=== PATIENT | male | born 1945 | race Caucasian/White ===

== ENCOUNTER 2016-10-22 07:43 | Emergency (ER) | payer MEDICARE, BC ==
[2016-10-22 08:11] LABS: Urine Bilirubin 1 mg/dl (NEGATIVE); Urine Blood 250 /ul (NEGATIVE); Urine Ketone Negative (NEGATIVE); Urine Protein 100 mg/dL (NEGATIVE); Urine Urobilinogen 4 EU/dl (NORMAL)
--- NOTE | 2016-10-22 08:28 | ERNOTE ---
ER Male HPI Date of Service: 10/22/16 Stated Complaint: PAINFUL URINATION ER Male: urinary retention Time Seen by Provider: 10/22/16 08:17 Source: patient Exam Limitations: no limitations Immunizations: IMMUNIZATION HX Immunizations Up to Date Yes History of Influenza Vaccine Yes Hx Pneumococcal Vaccination Yes Allergies/Adverse Reactions: Allergies No Known Allergies Allergy (Verified 08/09/15 14:20) Home Medications: HOME MEDICATIONS Acetaminophen [Tylenol] 25 - 500 mg PO BID 12/16/14 [Last Taken Unknown] Albuterol Sulfate 2.5 mg IH DAILY PRN 12/16/14 [Last Taken Unknown] Allopurinol [Zyloprim] 300 mg PO DAILY 12/16/14 [Last Taken Unknown] Aspirin [Aspirin Enteric Coated] 81 mg PO DAILY 12/16/14 [Last Taken Unknown] Calcium Polycarbophil [Fibercon] 625 mg PO DAILY 12/16/14 [Last Taken Unknown] Flunisolide 25 ml NS 12/16/14 [Last Taken Unknown] Ibuprofen [Motrin] 800 mg PO TID PRN 12/16/14 [Last Taken Unknown] Ipratropium/Albuterol Sulfate [Combivent Respimat Inhal [place]] 20 - 100 mcg IH QID 12/16/14 [Last Taken Unknown] Metoprolol Tartrate [Lopressor] 50 mg PO DAILY 12/16/14 [Last Taken Unknown] Multivitamin [Poly-Vitamin] 1 each PO DAILY 12/16/14 [Last Taken Unknown] [place]-3 Fatty Acids [Fish Oil] 300 mg PO DAILY 12/16/14 [Last Taken Unknown] Omeprazole [Prilosec] 20 mg PO DAILY 12/16/14 [Last Taken Unknown] Simvastatin [Zocor] 20 mg PO DAILY 12/16/14 [Last Taken Unknown] Terazosin HCl 10 mg PO DAILY 12/16/14 [Last Taken Unknown] amLODIPine BESYLATE [Norvasc] 5 mg PO DAILY 12/16/14 [Last Taken Unknown] Levofloxacin [Levaquin] 750 mg PO DAILY #10 tab 08/09/15 [Last Taken Unknown] Ciprofloxacin HCl [Cipro] 500 mg PO BID #14 tablet 10/22/16 [Last Taken Unknown] Phenazopyridine HCl [Pyridium] 200 mg PO TID #6 tablet 10/22/16 [Last Taken Unknown] - History of Present Illness Narrative: 70-year-old white male presents with difficulty urinating. Patient states yesterday he had to vehicle to urinating off and on. This morning he woke up and he again only has dribbling. He states he does have a history of prostate problems and is on a medication for this. Presumably this is Flomax. He has not had any systemic signs of illness. No fever chills. No prior prostate surgery. No nausea vomiting. He has not had hematuria. Timing: Present: intermittent Quality: Present: moderate Review of Systems - Review of Systems Constitutional: Present: See HPI. Absent: recent illness, fever, chills, diaphoresis EYE: Present: no symptoms reported ENT: Present: no symptoms reported Respiratory: Present: no symptoms reported Cardiology: Present: no symptoms reported Gastrointestinal/Abdominal: Present: no symptoms reported Genitourinary: Present: See HPI, dysuria, decreased urinary output. Absent: hematuria, discharge Musculoskeletal: Present: no symptoms reported Neurological: Present: no symptoms reported Endocrine: Present: no symptoms reported Psych: Present: no symptoms reported - Patient's Past Medical History Patient History - Medical: Diabetes Type 2 Patient History - Cardiac/Respiratory: Hypertension, Hyperlipidemia Patient History - Cancer: No Hx of Cancer Patient History - Surgical Procedures: Appendectomy Patient History - Other: None - Social History Living Situations: home Abuse History: No History of abuse Psych History: No pertinent hx Smoking Status: Former smoker Have you smoked in the past 12 months: Yes Alcohol Use: none Drug Use: none - Immunizations Immunizations Up to Date: Yes Hx Pneumococcal Vaccination: Yes History of Influenza Vaccine: Yes Physical Exam - Physical Exam General Appearance: Present: wd/wn, alert, no apparent distress Eye Exam: Normal inspection: bilateral Ears, Nose, Throat: Present: normal ENT inspection Neck: Present: normal inspection Respiratory: Present: no respiratory distress, normal breath sounds, no accessory muscle use, lungs clear Cardiovascular/Chest: Present: regular rate, rhythm, normal peripheral pulses Gastrointestinal/Abdominal: Present: normal bowel sounds, nontender, soft. 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 - Vital Signs Patient's Vital Signs:: I have reviewed the patient's vital signs. Vital Signs: Vital Signs 10/22/16 07:52 Temperature 37.8 C H Pulse Rate 77 Respiratory 16 Rate Blood Pressure 141/60 O2 Sat by Pulse 90 Oximetry - Progress/Reassessment Chief Complaint: Genitourinary Problem Plan - Plan Plan: Post void residual was 0. Patient is hemodynamically stable. He is not having fever. He is not having vomiting. I will discharge him home on antibiotic therapy. I will encourage fluid hydration. Patient will be advised if anytime he starts to develop systemic signs of illness such as fevers chills vomiting patient returned to our department. He should follow-up with his primary care physician early next week. We will culture the urine. This was discussed with patient and his significant other. They verbalized complete understanding. Departure Clinical Impression: UTI (urinary tract infection) Qualifiers: Urinary tract infection type: acute cystitis Hematuria presence: with hematuria Qualified Code(s): N30.01 - Acute cystitis with hematuria - Departure Disposition: Home self-care Condition: Good Instructions: Urinary Tract Infection, Adult, [id number] Additional Instructions: Follow-up with primary care physician Tuesday. Return to the emergency department if any problems such as fever, chills, vomiting or weakness. Prescriptions: Ciprofloxacin HCl [Cipro] 500 mg PO BID #14 tablet Phenazopyridine HCl [Pyridium] 200 mg PO TID #6 tablet
[2016-10-22 08:32] LABS: Urine Appearance Cloudy; Urine Bacteria 3+; Urine Color Yellow; Urine Nitrite Positive (NEGATIVE); Urine WBC >50 /hpf (0-5)
[2016-10-22 09:03] LABS: Albumin * 3.8 gm/dl (3.4-5.0); Anion Gap 10.9 mmol/L (6.8-13.8); BUN/Creatinine Ratio 21.6 (9.0-21.6); Bilirubin, Total 2.4 mg/dL (0.0-1.1); Ca. Corrected For Albumin 8.7 mg/dL (8.4-10.2); Calcium * 8.9 mg/dL (7.9-10.9); Carbon Dioxide 31.8 mmol/L (24-32.6); Potassium 3.7 mmol/L (3.4-4.6); Total Protein 7.1 gm/dL (6.2-8.2)
[2016-10-22 09:27] VITALS: BP 157/72
== END 2016-10-22 09:27 | disposition home or self-care (01) ==
LOC: ER 07:43
DX: N30.01 Acute cystitis with hematuria (principal); Z87.891 Personal history of nicotine dependence

== ENCOUNTER 2016-11-01 12:52 | Emergency (ER) | payer MEDICARE, BC ==
--- NOTE | 2016-11-01 13:12 | ERNOTE ---
Dyspnea - General Presenting Symptoms: shortness of breath Time Seen by Provider: 11/01/16 12:55 Source: patient Exam Limitations: no limitations - Immun/Allergies/Home Medications Immunizations: IMMUNIZATION HX Immunizations Up to Date Yes History of Influenza Vaccine Yes Hx Pneumococcal Vaccination Yes Allergies/Adverse Reactions: Allergies No Known Allergies Allergy (Verified 11/01/16 13:19) Home Medications: HOME MEDICATIONS Acetaminophen [Tylenol] 25 - 500 mg PO BID 12/16/14 [Last Taken Unknown] Albuterol Sulfate 2.5 mg IH DAILY PRN 12/16/14 [Last Taken Unknown] Allopurinol [Zyloprim] 300 mg PO DAILY 12/16/14 [Last Taken Unknown] Aspirin [Aspirin Enteric Coated] 325 mg PO DAILY 12/16/14 [Last Taken Unknown] Calcium Polycarbophil [Fibercon] 625 mg PO DAILY 12/16/14 [Last Taken Unknown] Ipratropium/Albuterol Sulfate [Combivent Respimat Inhal [place]] 20 - 100 mcg IH QID 12/16/14 [Last Taken Unknown] Metoprolol Tartrate [Lopressor] 50 mg PO BID 12/16/14 [Last Taken Unknown] [place]-3 Fatty Acids [Fish Oil] 1,000 mg PO DAILY 12/16/14 [Last Taken Unknown] Omeprazole [Prilosec] 20 mg PO DAILY 12/16/14 [Last Taken Unknown] Simvastatin [Zocor] 20 mg PO DAILY 12/16/14 [Last Taken Unknown] Terazosin HCl 10 mg PO DAILY 12/16/14 [Last Taken Unknown] Atorvastatin Calcium [Lipitor] 80 mg PO DAILY 11/01/16 [Last Taken Unknown] Fluticasone Propionate [Flonase] 1 spray NS DAILY 11/01/16 [Last Taken Unknown] predniSONE [Prednisone] 3 tab PO DAILY #18 tab 11/01/16 [Last Taken Unknown] - History of Present Illness Narrative: Patient has had a slight cough and has been short of breath with activity for two days. He went to the walk in clinic were he was found to have O2 sats in the low 80's, denies chest pain. He stopped smoking six months ago, was seen in the ER recently for a UTI, finished his antibiotics, denies any other symptoms Review of Systems - Review of Systems Constitutional: Present: recent illness - UTI. Absent: fever, chills ENT: Absent: nose pain, nose congestion, nasal drainage, sore throat Respiratory: Present: See HPI, shortness of breath, cough Cardiology: Absent: chest pain Gastrointestinal/Abdominal: Absent: nausea, vomiting, diarrhea, abdominal pain Genitourinary: Present: no symptoms reported Musculoskeletal: Absent: back pain Neurological: Absent: headache - Patient's Past Medical History Patient History - Medical: Diabetes Type 2 Patient History - Cardiac/Respiratory: COPD, Hypertension, Hyperlipidemia Patient History - Cancer: No Hx of Cancer Patient History - Surgical Procedures: Appendectomy Patient History - Other: None - Social History Living Situations: home Abuse History: No History of abuse Psych History: No pertinent hx Smoking Status: Former smoker Alcohol Use: none Drug Use: none - Immunizations Immunizations Up to Date: Yes Hx Pneumococcal Vaccination: Yes History of Influenza Vaccine: Yes Physical Exam - Physical Exam General Appearance: Present: wd/wn, alert, no apparent distress Head Exam: Present: normal inspection Eye Exam: Normal inspection: bilateral, PERRL: bilateral Ears, Nose, Throat: Present: normal ENT inspection, normal pharynx Respiratory: Present: no respiratory distress, no accessory muscle use, lungs clear, decreased breath sounds. Absent: expiration (prolonged), wheezing Cardiovascular/Chest: Present: regular rate, rhythm, no murmur Gastrointestinal/Abdominal: Present: nontender, nondistended Extremity Exam: Present: no edema Neurological Exam: Present: alert, oriented, normal mood/affect Skin Exam: Present: normal color, warm/dry ED Progress - Results and Orders Patient's Lab Results:: I have reviewed the patient's lab results. - Vital Signs Patient's Vital Signs:: I have reviewed the patient's vital signs. - 84% on RA - X-Ray X-Ray #1 X-Ray: chest - chronic, no acute changes Interpretation: Reviewed by me - Progress/Reassessment Progress Note-Subjective: 11/01/16 14:30 discussed test results with patient, will order CTA 11/01/16 15:[address] results with patient, no PE, recommended admission as patient hypoxic on on RA, patient is adamant about going home discussed with Diane (housing case manager) getting home O2 11/01/16 15:52 attempted to get follow up appointment with PCP (Tonia Mendoza) on vacation this week. Departure Clinical Impression: COPD exacerbation, Hypoxemia - Departure Disposition: Against medical advice Condition: Fair Instructions: Chronic Obstructive Pulmonary Disease Exacerbation, [id number] Additional Instructions[facility] treatments as needed we will continue to work on getting you set up for oxygen Referrals: Tonia Mendoza FNP [Primary Care Provider] - Prescriptions: predniSONE [Prednisone] 3 tab PO DAILY #18 tab
[2016-11-01 13:28] LABS: Hematocrit 45.5 % (42.0-52.0); Mean Cell Volume 91.7 fl (78-100); Mean Corpuscular Hemoglobin 30.2 pg (27-31); Mean Platelet Volume 10.1 fl (6.0-9.5); Neutrophil # 9.5 K/mm3 (1.3-6.0); Neutrophil % 80.2 % (42-75.0); Platelet Count 163 K/mm3 (150-450); Red Blood Count 4.96 M/mm3 (4.7-6.0); Red Cell Distribution Width 12.9 % (11.5-14.0); White Blood Count 11.9 K/mm3 (4.0-10.5)
[2016-11-01 13:42] LABS: Troponin I Less than 0.017 ng/ml (0.00-0.10)
[2016-11-01 13:44] LABS: ALT 21 U/L (19-67); AST 15 U/L (0-48); Albumin * 3.3 gm/dl (3.4-5.0); Alkaline Phosphatase * 99 U/L (50-170); Anion Gap 6.7 mmol/L (6.8-13.8); BNP * 215 pg/mL (5-350); BUN/Creatinine Ratio 17.8 (9.0-21.6); Bilirubin, Total 0.9 mg/dL (0.0-1.1); Blood Urea Nitrogen 16 mg/dL (6-23); Ca. Corrected For Albumin 8.8 mg/dL (8.4-10.2); Calcium * 8.6 mg/dL (7.9-10.9); Carbon Dioxide 36.6 mmol/L (24-32.6); Chloride 103 mmol/L (97-106); Glucose * 161 mg/dL (70-110); Potassium 4.3 mmol/L (3.4-4.6); Sodium 142 mmol/L (132-142); Total Protein 6.9 gm/dL (6.2-8.2)
[2016-11-01 14:53] VITALS: BP 124/52
[2016-11-01] MEDS ORDERED: METHYLPREDNISOLONE SOD SUCC/PF 125 MG/2 ML VIAL IV ONE (15:32)
[2016-11-01] MEDS ORDERED: METHYLPREDNISOLONE SOD SUCC/PF 125 MG/2 ML VIAL ONE (15:36)
== END 2016-11-01 16:42 | disposition left against medical advice (07) ==
LOC: ER 12:52
DX: J44.1 Chronic obstructive pulmonary disease with (acute) exacerbation (principal); R09.02 Hypoxemia; E11.9 Type 2 diabetes mellitus without complications; I10 Essential (primary) hypertension; E78.5 Hyperlipidemia, unspecified; Z87.891 Personal history of nicotine dependence; Z53.29 Procedure and treatment not carried out because of patient's decision for other reasons

== ENCOUNTER 2018-02-21 12:08 | Observation (INO) | payer BC, MEDICARE, OTHER ==
[2018-02-21] MEDS ORDERED: ALBUTEROL SULFATE/IPRATROPIUM 3 ML NEBU IH ONE (12:22)
[2018-02-21] MEDS ORDERED: METHYLPREDNISOLONE SOD SUCC/PF 40 MG/ML VIAL IV ONE (12:23)
--- NOTE | 2018-02-21 12:28 | ERNOTE ---
Time Seen by Provider: 02/21/18 12:13 Stated Complaint: NOT FEELING WELL Presenting Symptoms:: cough, other - SOB Source: patient Exam Limitations: no limitations Immunizations: IMMUNIZATION HX Immunizations Up to Date Yes History of Influenza Vaccine Yes Hx Pneumococcal Vaccination No Allergies/Adverse Reactions: Allergies No Known Allergies Allergy (Verified 02/21/18 12:13) Home Medications: HOME MEDICATIONS Allopurinol [Zyloprim] 300 mg PO DAILY 12/16/14 [Last Taken Unknown] Metoprolol Tartrate [Lopressor] 50 mg PO BID 12/16/14 [Last Taken Unknown] Omeprazole [Prilosec] 20 mg PO DAILY 12/16/14 [Last Taken Unknown] Terazosin HCl 10 mg PO DAILY 12/16/14 [Last Taken Unknown] Atorvastatin Calcium [Lipitor] 80 mg PO DAILY 11/01/16 [Last Taken Unknown] albuterol sulfate 2.5 mg/3 mL (0.083 %) solution for nebulization 2.5 mg IH Q6H PRN ml 11/29/17 [Last Taken Unknown] amlodipine 5 mg tablet 5 mg PO DAILY 11/29/17 [Last Taken Unknown] aspirin 325 mg tablet,delayed release 81 mg PO DAILY 11/29/17 [Last Taken Unknown] calcium polycarbophil 625 mg tablet 625 mg PO BID tab 11/29/17 [Last Taken Unknown] diphenhydramine 25 mg-acetaminophen 500 mg tablet 1 tab PO HS PRN 11/29/17 [Last Taken Unknown] fluticasone 50 mcg/actuation nasal spray,suspension 2 spray [place] DAILY g 11/29/17 [Last Taken Unknown] melatonin 3 mg tablet 6 mg PO HS tab 11/29/17 [Last Taken Unknown] omega-3 fatty acids 500 mg capsule 1,000 mg PO DAILY cap 11/29/17 [Last Taken Unknown] sildenafil 100 mg tablet 100 mg PO DAILY PRN 11/29/17 [Last Taken Unknown] - History of Present Ilness Narrative: The patient has been suffering from cold like symptoms for possibly upwards to 2 weeks, however over the past several days he has been coughing up copious amounts of secretions and his O2 sat started to drop today. Home health care saw him today and his sats were in the mid 80s on his normal 2-1/2 L O2 nasal cannula Timing: getting worse Severity: moderate Frequency/Possible Cause: Reports: occasional episodes Modifying Factors - Improves: Reports: oxygen Modifying Factors - Worsens: Reports: nothing Associated Symptoms: Reports: cough, shortness of breath Review of Systems - Review of Systems Constitutional: Present: See HPI EYE: Present: no symptoms reported ENT: Present: no symptoms reported Respiratory: Present: See HPI Cardiology: Present: no symptoms reported Gastrointestinal/Abdominal: Present: no symptoms reported Genitourinary: Present: no symptoms reported Musculoskeletal: Present: no symptoms reported Skin: Present: no symptoms reported Neurological: Present: no symptoms reported Endocrine: Present: no symptoms reported Hematologic/Lymphatic: Present: no symptoms reported Psych: Present: no symptoms reported Medical History (Last Reviewed 12/06/17 @ 13:44 by ARIE Jones) Type 2 diabetes mellitus (Chronic) Onset Date: Unknown COPD (chronic obstructive pulmonary disease) (Chronic) Onset Date: Unknown Allergic rhinitis (Chronic) Onset Date: Unknown Cataracts, bilateral Onset Date: Unknown GERD (gastroesophageal reflux disease) Onset Date: Unknown Gout Onset Date: Unknown Hyperlipidemia Onset Date: Unknown Hypertension Onset Date: Unknown Morbid obesity Onset Date: Unknown Tobacco abuse Onset Date: Unknown Surgical History: Surgical History (Last Reviewed 12/06/17 @ 13:44 by ARIE Jones) H/O removal of cyst Onset Date: Unknown History of appendectomy Onset Date: Unknown History of incision and drainage Onset Date: Unknown History of surgical removal of pilonidal cyst Onset Date: Unknown Family History: Family History (Last Reviewed 12/06/17 @ 13:44 by ARIE Jones) Father , age 93 Cancer AAA (abdominal aortic aneurysm) Mother , age 89 CVA (cerebral vascular accident) Social History: Preferred Language Mexican Smoking Status Former smoker Abuse History No History of abuse Psych History No pertinent hx Alcohol Use none Drug Use none (Last Updated 12/06/17 @ 16:07 by ARIE Jones) No Social History Section defined Physical Exam - Physical Exam General Appearance: Present: wd/wn, alert, moderate distress Head Exam: Present: normal inspection, no evidence of injury Eye Exam: Normal inspection: bilateral, PERRL: bilateral Ears, Nose, Throat: Present: normal ENT inspection, H, normal pharynx Neck: Present: normal inspection, nontender Respiratory: Present: no respiratory distress, no accessory muscle use, chest nontender, decreased breath sounds, other - find coarse breath sounds Cardiovascular/Chest: Present: regular rate, rhythm, no murmur, normal peripheral pulses Gastrointestinal/Abdominal: Present: normal bowel sounds, nontender, nondistended, soft, no organomegaly Rectal Exam: Present: deferred Back Exam: Present: normal inspection, normal range of motion Extremity Exam: Present: normal inspection, non-tender, no edema, normal range of motion Neurological Exam: Present: alert, oriented, normal mood/affect Skin Exam: Present: normal color, warm/dry Lymphatic Exam: Present: no adenopathy ED Progress - Results and Orders Patient's Lab Results:: I have reviewed the patient's lab results. - Vital Signs Patient's Vital Signs:: I have reviewed the patient's vital signs. Vital Signs: Vital Signs 02/21/18 12:09 Temperature 36.5 C Pulse Rate 61 Respiratory Rate 13 Blood Pressure 142/71 O2 Sat by Pulse Oximetry 89 L - EKG EKG: NSR - X-Ray X-Ray #1 X-Ray: chest Interpretation: Reviewed by me - Progress/Reassessment Chief Complaint: Cough Plan - Plan Plan: Patient only improved minimally after the breathing treatment and steroids. He is currently to be admitted for little more aggressive pulmonary toilet and IV steroids and we await the sputum culture to see whether he might not want to start him on IV antibiotics as well. I discussed the case with Dr. Toledo and h e agrees to admit the patient. Departure Clinical Impression: Hypoxemia COPD (chronic obstructive pulmonary disease) Qualifiers: COPD type: COPD with acute exacerbation Qualified Code(s): J44.1 - Chronic obstructive pulmonary disease with (acute) exacerbation - Departure Disposition: Still a patient Condition: Fair Referrals: Tonia Mendoza FNP [Primary Care Provider] -
[2018-02-21] MEDS ORDERED: METHYLPREDNISOLONE SOD SUCC/PF 125 MG/2 ML VIAL IV ONE (12:46)
[2018-02-21 12:51] LABS: Hematocrit 40.3 % (42.0-52.0); Mean Cell Volume 95.3 fl (78-100); Mean Corpuscular Hemoglobin 30.7 pg (27-31); Mean Corpuscular Hgb Conc 32.3 g/dl (32-36); Mean Platelet Volume 10.1 fl (8-11.3); Neutrophil # 9.3 K/mm3 (1.3-6.0); Platelet Count 159 K/mm3 (150-450); Red Blood Count 4.23 M/mm3 (4.7-6.0); Red Cell Distribution Width 12.3 % (11.5-14.0); White Blood Count 11.9 K/mm3 (4.0-10.5)
[2018-02-21 13:09] LABS: ALT 18 U/L (19-67); AST 17 U/L (0-48); Albumin * 3.3 gm/dl (3.4-5.0); Alkaline Phosphatase * 112 U/L (50-170); Anion Gap 5.8 mmol/L (6.8-13.8); BNP * 413 pg/mL (5-350); BUN/Creatinine Ratio 19.3 (9.0-21.6); Bilirubin, Total 0.9 mg/dL (0.0-1.1); Blood Urea Nitrogen 16 mg/dL (6-23); Ca. Corrected For Albumin 9.5 mg/dL (8.4-10.2); Calcium * 9.3 mg/dL (7.9-10.9); Carbon Dioxide 43.6 mmol/L (24-32.6); Chloride 99 mmol/L (97-106); Glucose * 142 mg/dL (70-110); Magnesium 1.6 mg/dL (1.2-2.8); Potassium 4.4 mmol/L (3.4-4.6); Sodium 144 mmol/L (132-142); Total Protein 7.1 gm/dL (6.2-8.2); Troponin I Less than 0.017 ng/mL (0.00-0.10)
[2018-02-21] MEDS ORDERED: ALBUTEROL SULFATE 2.5 MG/0.5 ML VIAL.NEB IH PRN (15:03)
--- NOTE | 2018-02-21 15:59 | HP ---
Chief Complaint - Chief Complaint Date of Service: 02/21/18 Time of Service: 15:36 Chief Complaint: Short of breath History of Present Illness: Miguel is a 72 yo male with history of chronic respiratory failure on 2.5lpm for COPD. He has been on oxygen for the last 8 months. He gets his medical care from the [facility] in [place]. He reports over the last 24 hours he has had worsening shortness of breath and productive cough. He was evaluated at home by his home health nurse and his oxygen saturation was 84% on his usual 2.5lpm of oxygen. He then presented to the [facility] ER for evaluation. Chest xray, blood gas, and labwork showed him to likely be in COPD exacerbation. He was requiring 3lpm to keep oxygen saturation >87%. There was no evidence of pneumonia. He was given IV solumedrol at 125mg and nebulizer treatment. He reports now he is feeling a little better but still short of breath more than usual. Medical History (Last Reviewed 02/21/18 @ 15:04 by Jalil Gomez RN) Type 2 diabetes mellitus (Chronic) Onset Date: Unknown COPD (chronic obstructive pulmonary disease) (Chronic) Onset Date: Unknown Allergic rhinitis (Chronic) Onset Date: Unknown Cataracts, bilateral Onset Date: Unknown GERD (gastroesophageal reflux disease) Onset Date: Unknown Gout Onset Date: Unknown Hyperlipidemia Onset Date: Unknown Hypertension Onset Date: Unknown Morbid obesity Onset Date: Unknown Tobacco abuse Onset Date: Unknown Surgical History: Surgical History (Last Reviewed 02/21/18 @ 15:04 by Jalil Gomez RN) H/O removal of cyst Onset Date: Unknown History of appendectomy Onset Date: Unknown History of incision and drainage Onset Date: Unknown History of surgical removal of pilonidal cyst Onset Date: Unknown Family History: Family History (Last Reviewed 02/21/18 @ 15:02 by Jalil Gomez RN) Father , age 93 Cancer AAA (abdominal aortic aneurysm) Mother , age 89 CVA (cerebral vascular accident) Social History: Preferred Language Guyanese Smoking Status Former smoker Abuse History No History of abuse Psych History No pertinent hx Alcohol Use none Drug Use none (Last Updated 12/06/17 @ 16:07 by ARIE Jones) No Social History Section defined Review Of Systems (GEN) - Review of Systems Generalized/Overall Review: Absent: Weakness, Chills, Fever EENTM: Present: No Symptoms Reported Respiratory: Present: Cough, Shortness of Breath, Wheezing. Absent: Orthopnea, Stridor Cardiac: Absent: Chest Pain, Edema, Palpitations Abdominal: Absent: Nausea, Vomiting Genitourinary: Present: No Symptoms Reported Musculoskeletal: Present: No Symptoms Reported Neurological: Present: No Symptoms Reported Skin: Present: No Symptoms Reported Immunizations: IMMUNIZATION HX Immunizations Up to Date Yes History of Influenza Vaccine Yes Hx Pneumococcal Vaccination No Allergies/Adverse Reactions: Allergies Allergy/AdvReac Type Severity Reaction Status Date / Time No Known Allergies Allergy Verified 02/21/18 12:13 Home Medications: HOME MEDICATIONS Allopurinol [Zyloprim] 300 mg PO DAILY 12/16/14 [Last Taken Unknown] Metoprolol Tartrate [Lopressor] 50 mg PO BID 12/16/14 [Last Taken Unknown] Omeprazole [Prilosec] 20 mg PO DAILY 12/16/14 [Last Taken Unknown] Terazosin HCl 10 mg PO DAILY 12/16/14 [Last Taken Unknown] Atorvastatin Calcium [Lipitor] 80 mg PO DAILY 11/01/16 [Last Taken Unknown] albuterol sulfate 2.5 mg/3 mL (0.083 %) solution for nebulization 2.5 mg IH Q6H PRN ml 11/29/17 [Last Taken Unknown] amlodipine 5 mg tablet 5 mg PO DAILY 11/29/17 [Last Taken Unknown] aspirin 325 mg tablet,delayed release 81 mg PO DAILY 11/29/17 [Last Taken Unknown] calcium polycarbophil 625 mg tablet 625 mg PO BID tab 11/29/17 [Last Taken Unknown] diphenhydramine 25 mg-acetaminophen 500 mg tablet 1 tab PO HS PRN 11/29/17 [Last Taken Unknown] fluticasone 50 mcg/actuation nasal spray,suspension 2 spray BRYANNA DAILY g 11/29 [Last Taken Unknown] melatonin 3 mg tablet 6 mg PO HS tab 11/29/17 [Last Taken Unknown] omega-3 fatty acids 500 mg capsule 1,000 mg PO DAILY cap 11/29/17 [Last Taken Unknown] sildenafil 100 mg tablet 100 mg PO DAILY PRN 11/29/17 [Last Taken Unknown] Exam - Exam Vital Signs: Vital Signs - Last Taken Temp 36.5 C 02/21/18 14:45 Pulse 66 02/21/18 14:45 Resp 22 H 02/21/18 14:45 BP 146/65 02/21/18 14:45 Pulse Ox 90 L 02/21/18 14:45 Constitutional: Present: Alert, Oriented x3, Cooperative, Obese ENT Exam: Present: hearing grossly normal Eye Exam: bilateral eye: normal inspection Respiratory: Present: decreased breath sounds, wheezing Cardiovascular/Chest: Present: regular rate, rhythm, no murmur Abdomen: Present: Normal bowel sounds, soft, nontender, nondistended Skin Exam: Present: normal color, warm/dry, no cyanosis Appearance: Present: appropriate appearance, appropriate insight Eye contact: Present: cooperative, good eye contact, normal speech Thoughts: Present: normal thought pattern, no apparent hallucination Diagnostic Studies: Abnormal Lab Results 02/21/18 02/21/18 02/21/18 Range/Units 12:22 12:40 12:40 WBC 11.9 H (4.0-10.5) K/mm3 RBC 4.23 L (4.7-6.0) M/mm3 Hgb 13.0 L (13.5-18.0) gm/dL Hct 40.3 L (42.0-52.0) % Immature Gran % (Auto) 1.30 H (0.001-0.429) % Immature Gran # (Auto) 0.15 H (0.000-0.0310) K/mm3 Neutrophils % 78.0 H (42-75.0) % Lymphocytes % 8.7 L (20-51) % Monocytes % 10.2 H (0.0-9) % Neutrophils # 9.3 H (1.3-6.0) K/mm3 Lymphocytes # 1.03 L (1.5-3.5) k/mm3 Monocytes # 1.2 H (0.0-1.0) k/mm3 pCO2 56.9 H (35.0-48.0) mmHg pO2 56.2 L (83.0-108.0) mmHg HCO3 34.2 H (21.0-28.0) mmol/L Total CO2 36.0 H (19.0-24.0) mmol/L Base Excess 7.6 H (-2.0-3.0) mmol/L ABG O2 Sat (Measured) 88.5 L (94.0-98.0) % Sodium 144 H (132-142) mmol/L Plasma Sodium 145 H (130-142) mmol/L Carbon Dioxide 43.6 H (24-32.6) mmol/L Anion Gap 5.8 L (6.8-13.8) mmol/L Random Glucose 142 H (70-110) mg/dL ALT 18 L (19-67) U/L B-Natriuretic Peptide 413 H (5-350) pg/mL Albumin 3.3 L (3.4-5.0) gm/dl Microbiology 02/21/18 13:00 Sputum Culture - Preliminary Sputum Laboratory Results WBC 11.9 K/mm3 (4.0-10.5) H 02/21/18 12:40 RBC 4.23 M/mm3 (4.7-6.0) L 02/21/18 12:40 Hgb 13.0 gm/dL (13.5-18.0) L 02/21/18 12:40 Hct 40.3 % (42.0-52.0) L 02/21/18 12:40 MCV 95.3 fl (78-100) 02/21/18 12:40 MCH 30.7 pg (27-31) 02/21/18 12:40 MCHC 32.3 g/dl (32-36) 02/21/18 12:40 RDW 12.3 % (11.5-14.0) 02/21/18 12:40 Plt Count 159 K/mm3 (150-450) 02/21/18 12:40 MPV 10.1 fl (8-11.3) 02/21/18 12:40 Immature Gran % (Auto) 1.30 % (0.001-0.429) H 02/21/18 12:40 Immature Gran # (Auto) 0.15 K/mm3 (0.000-0.0310) H 02/21/18 12:40 Neutrophils % 78.0 % (42-75.0) H 02/21/18 12:40 Lymphocytes % 8.7 % (20-51) L 02/21/18 12:40 Monocytes % 10.2 % (0.0-9) H 02/21/18 12:40 Eosinophils % 1.3 % (0.0-3.0) 02/21/18 12:40 Basophils % 0.5 % (0.0-1.0) 02/21/18 12:40 Nucleated RBC % 0.0 k/mm3 (0-1) 02/21/18 12:40 Neutrophils # 9.3 K/mm3 (1.3-6.0) H 02/21/18 12:40 Lymphocytes # 1.03 k/mm3 (1.5-3.5) L 02/21/18 12:40 Monocytes # 1.2 k/mm3 (0.0-1.0) H 02/21/18 12:40 Eosinophils # 0.2 k/mm3 (0.0-0.7) 02/21/18 12:40 Absolute Basophils 0.1 k/mm3 (0.0-0.1) 02/21/18 12:40 pCO2 56.9 mmHg (35.0-48.0) H 02/21/18 12:22 pO2 56.2 mmHg (83.0-108.0) L 02/21/18 12:22 HCO3 34.2 mmol/L (21.0-28.0) H 02/21/18 12:22 Total CO2 36.0 mmol/L (19.0-24.0) H 02/21/18 12:22 Base Excess 7.6 mmol/L (-2.0-3.0) H 02/21/18 12:22 ABG pH 7.40 (7.35-7.45) 02/21/18 12:22 ABG O2 Sat (Measured) 88.5 % (94.0-98.0) L 02/21/18 12:22 Sodium 144 mmol/L (132-142) H 02/21/18 12:40 Plasma Sodium 145 mmol/L (130-142) H 02/21/18 12:40 Potassium 4.4 mmol/L (3.4-4.6) 02/21/18 12:40 Chloride 99 mmol/L (97-106) 02/21/18 12:40 Carbon Dioxide 43.6 mmol/L (24-32.6) H 02/21/18 12:40 Anion Gap 5.8 mmol/L (6.8-13.8) L 02/21/18 12:40 BUN 16 mg/dL (6-23) 02/21/18 12:40 Creatinine 0.83 mg/dL (0.4-1.4) 02/21/18 12:40 Est GFR (Non-Af Amer) 97 mL/min (60-130) 02/21/18 12:40 BUN/Creatinine Ratio 19.3 (9.0-21.6) 02/21/18 12:40 Random Glucose 142 mg/dL (70-110) H 02/21/18 12:40 Calcium 9.3 mg/dL (7.9-10.9) 02/21/18 12:40 Calcium Adj for Albumin 9.5 mg/dL (8.4-10.2) 02/21/18 12:40 Magnesium 1.6 mg/dL (1.2-2.8) 02/21/18 12:40 Total Bilirubin 0.9 mg/dL (0.0-1.1) 02/21/18 12:40 AST 17 U/L (0-48) 02/21/18 12:40 ALT 18 U/L (19-67) L 02/21/18 12:40 Alkaline Phosphatase 112 U/L (50-170) 02/21/18 12:40 Troponin I Less than 0.017 ng/mL (0.00-0.10) 02/21/18 12:40 B-Natriuretic Peptide 413 pg/mL (5-350) H 02/21/18 12:40 Total Protein 7.1 gm/dL (6.2-8.2) 02/21/18 12:40 Albumin 3.3 gm/dl (3.4-5.0) L 02/21/18 12:40 Assessment/Plan - Assessment/Plan (1) COPD exacerbation Assessment: Migule is a 72 yo male with: 1) COPD exacerbation - He has chronic respiratory failure, potentially acute on chronic respiratory failure as he is currently using 3lpm to keep sats >87% compared to his baseline of 2.5lpm. He was given IV solumedrol 125mg in the ER, will continued Prednisone 40mg starting daily tomorrow. Will treat with duoneb q6hr and q2hr prn, cornet and incentive spirometer, and azithromycin 500mg daily x 3 days. At this time will admit to observation. Expect 1 midnight stay. Problem: Acute
[2018-02-21] MEDS: AZITHROMYCIN 250 MG TABLET PO SCH (16:43)
[2018-02-21] MEDS ORDERED: Sildenafil Citrate [Viagra] 100 MG PO PRN (17:13)
[2018-02-21] MEDS ORDERED: ACETAMINOPHEN 500 MG TABLET PO PRN (17:22)
[2018-02-21] MEDS ORDERED: diphenhydrAMINE HCL 25 MG CAPSULE PO PRN (17:23)
[2018-02-21] MEDS: ALBUTEROL SULFATE/IPRATROPIUM 3 ML NEBU IH SCH (18:59)
[2018-02-21] MEDS ORDERED: ROSUVASTATIN CALCIUM 20 MG TABLET PO SCH (21:00)
[2018-02-21] MEDS ORDERED: MELATONIN 3,000 MCG TABLET PO SCH (21:00)
[2018-02-21] MEDS: CALCIUM POLYCARBOPHIL 625 MG TABLET PO SCH (21:38)
[2018-02-21] MEDS: METOPROLOL TARTRATE 50 MG TABLET PO SCH (21:39)
[2018-02-22] MEDS: ALBUTEROL SULFATE/IPRATROPIUM 3 ML NEBU IH SCH ×2 (00:02→06:04)
[2018-02-22] MEDS ORDERED: PANTOPRAZOLE SODIUM 20 MG TABLET.DR PO SCH (07:00)
[2018-02-22] MEDS: METOPROLOL TARTRATE 50 MG TABLET PO SCH (08:34)
[2018-02-22] MEDS: CALCIUM POLYCARBOPHIL 625 MG TABLET PO SCH (08:34)
[2018-02-22] MEDS: AZITHROMYCIN 250 MG TABLET PO SCH (08:34)
[2018-02-22] MEDS ORDERED: ALLOPURINOL 300 MG TABLET PO SCH (09:00)
[2018-02-22] MEDS ORDERED: FLUTICASONE PROPIONATE 120 SPRAY INHALER NS SCH (09:00)
[2018-02-22] MEDS ORDERED: predniSONE 20 MG TABLET PO SCH (09:00)
[2018-02-22] MEDS ORDERED: ASPIRIN 81 MG TABLET.DR PO SCH (09:00)
[2018-02-22] MEDS ORDERED: TERAZOSIN HCL 5 MG CAPSULE PO SCH (09:00)
[2018-02-22] MEDS ORDERED: OMEGA-3 FATTY ACIDS 1 CAP CAPSULE PO SCH (09:00)
[2018-02-22] MEDS ORDERED: amLODIPine BESYLATE 5 MG TABLET PO SCH (09:00)
--- NOTE | 2018-02-22 11:38 | DS ---
(1) COPD exacerbation Problem: Acute Description of Stay: Miguel is a 72 yo male with COPD exacerbation that was admitted due to worsening shortness of breath and cough. He has chronic respiratory failure at home and is on 2.5lpm of oxygen continuously. He was admitted and placed on IV steroids and switched to oral prednisone today. He was given Azithromycin 500mg daily, scheduled duonebs q6h, coronet, and incentive spirometer. Today he feels better and is ready to go home. He will continue to follow the [facility] for routine care. He will continue to follow Dr. 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 He would like to establish with a local primary care for any local needs. He will need a total of 3 days of azithromycin and I will give him a tapering dose of prednisone. Procedures Performed: none Results and Findings: Pending Mircobiology Results 02/21/18 13:00 Sputum Sputum Culture - Preliminary No Pathogens Isolated Lab Pending Results 02/21/18 12:22: pCO2 56.9 H, pO2 56.2 L, HCO3 34.2 H, Total CO2 36.0 H, Base Excess 7.6 H, ABG pH 7.40, ABG O2 Sat (Measured) 88.5 L 02/21/18 12:40: WBC 11.9 H, RBC 4.23 L, Hgb 13.0 L, Hct 40.3 L, MCV 95.3, MCH 30.7, MCHC 32.3, RDW 12.3, Plt Count 159, MPV 10.1, Immature Gran % (Auto) 1.30 H, Immature Gran # (Auto) 0.15 H, Neutrophils % 78.0 H, Lymphocytes % 8.7 L, Monocytes % 10.2 H, Eosinophils % 1.3, Basophils % 0.5, Nucleated RBC % 0.0, Neutrophils # 9.3 H, Lymphocytes # 1.03 L, Monocytes # 1.2 H, Eosinophils # 0.2, Absolute Basophils 0.1 02/21/18 12:40: Sodium 144 H, Plasma Sodium 145 H, Potassium 4.4, Chloride 99, Carbon Dioxide 43.6 H, Anion Gap 5.8 L, BUN 16, Creatinine 0.83, Est GFR (Non-Af Amer) 97, BUN/Creatinine Ratio 19.3, Random Glucose 142 H, Calcium 9.3, Calcium Adj for Albumin 9.5, Magnesium 1.6, Total Bilirubin 0.9, AST 17, ALT 18 L, Alkaline Phosphatase 112, Troponin I Less than 0.017, B-Natriuretic Peptide 413 H, Total Protein 7.1, Albumin 3.3 L Discharge Location: Home Disposition: Home Health Service Condition: Fair Discharge Activity: Activity as tolerated Discharge Diet: General/regular food Referrals: Tonia Mendoza FNP [Primary Care Provider] - One Week Geovanni Solorzano MD [Associate] - (Next available) Problem Oriented Discharge Instructions to Patient/Family: Chronic Obstructive Pulmonary Disease Exacerbation, [id number] Additional Patient Instructions (free text): -Please make TCM appointment unless senior care discharge. Thank you! Jadyn @ ext:[phone]. Resume services with [facility]. Please call report to Tari at [phone]. Fax orders upon discharge. Prescriptions (Any new or edited meds): Azithromycin [Zithromax] 500 mg PO DAILY #2 tablet predniSONE [Prednisone] 40 mg PO DAILY #25 tablet Complete Home Medications List: Complete Home Medication List: Allopurinol [Zyloprim] 300 mg PO DAILY 12/16/14 Metoprolol Tartrate [Lopressor] 50 mg PO BID 12/16/14 Omeprazole [Prilosec] 20 mg PO DAILY 12/16/14 Terazosin HCl 10 mg PO DAILY 12/16/14 Atorvastatin Calcium [Lipitor] 80 mg PO DAILY 11/01/16 albuterol sulfate 2.5 mg/3 mL (0.083 %) solution for nebulization 2.5 mg IH Q8H PRN ml 11/29/17 amlodipine 5 mg tablet 5 mg PO DAILY 11/29/17 aspirin 325 mg tablet,delayed release 81 mg PO DAILY 11/29/17 calcium polycarbophil 625 mg tablet 625 mg PO BID tab 11/29/17 diphenhydramine 25 mg-acetaminophen 500 mg tablet 1 tab PO HS PRN 11/29/17 fluticasone 50 mcg/actuation nasal spray,suspension 2 spray BRYANNA DAILY g 11/29/17 melatonin 3 mg tablet 6 mg PO HS tab 11/29/17 omega-3 fatty acids 500 mg capsule 1,000 mg PO DAILY cap 11/29/17 sildenafil 100 mg tablet 100 mg PO DAILY PRN 11/29/17 Ketoconazole [Nizoral Cream] 1 appl TP BID 11/20/18 Acetaminophen [Tylenol] 500 mg PO HS PRN tablet 02/22/18 Azithromycin [Zithromax] 500 mg PO DAILY #2 tablet 02/22/18 Calcium Polycarbophil [Fibercon] 625 mg PO BID tablet 02/22/18 diphenhydrAMINE HCL [Benadryl] 25 mg PO HS PRN capsule 02/22/18 predniSONE [Prednisone] 40 mg PO DAILY #25 tablet 02/22/18
[2018-02-22 13:58] VITALS: BP 156/65
== END 2018-02-22 14:00 | disposition home health service (06) ==
LOC: MS 12:08 → ER 12:08 → MS 14:04
PROVIDERS: ADMIT Family Medicine; ATTEND Family Medicine
DX: R06.00 Dyspnea, unspecified
CPT/HCPCS: 36415; 36600; 71020; 71046; 80053; 82803; 83519; 83735; 83880; 84484; 85025; 87070; 93005; 94640; 94664; 94760; 96374; 99284; G0378

== ENCOUNTER 2019-10-27 16:47 | Inpatient (IN) ==
--- NOTE | 2019-10-27 17:37 | ERNOTE ---
Medical Problem HPI - Narrative Date of Service: 10/27/19 - General Chief Complaint: General Assessment Time Seen by Provider: 10/27/19 17:31 Source: EMS, RN notes reviewed, other - RN spoke to visiting nurse Exam Limitations: dementia - Immun/Allergies/Home Medications Immunizations: IMMUNIZATION HX Immunizations Up to Date Yes History of Influenza Vaccine Yes Hx Pneumococcal Vaccination Yes Allergies/Adverse Reactions: Allergies No Known Allergies Allergy (Verified 08/30/19 15:46) Home Medications: HOME MEDICATIONS Allopurinol [Zyloprim] 300 mg PO DAILY 12/16/14 [Last Taken Unknown] Metoprolol Tartrate [Lopressor] 50 mg PO BID 12/16/14 [Last Taken Unknown] Omeprazole [Prilosec] 20 mg PO DAILY 12/16/14 [Last Taken Unknown] Terazosin HCl 10 mg PO DAILY 12/16/14 [Last Taken Unknown] Atorvastatin Calcium [Lipitor] 80 mg PO DAILY 11/01/16 [Last Taken Unknown] albuterol sulfate 2.5 mg IH Q8H PRN ml 11/29/17 [Last Taken Unknown] amlodipine 5 mg tablet 5 mg PO DAILY 11/29/17 [Last Taken Unknown] fluticasone propionate 50 mcg/actuation nasal spray,suspension 2 spray BRYANNA DAILY g 11/29/17 [Last Taken Unknown] sildenafil 100 mg tablet 100 mg PO DAILY PRN 11/29/17 [Last Taken Unknown] Calcium Polycarbophil [Fibercon] 625 mg PO BID tab 02/22/18 [Last Taken Unknown] budesonide 0.5 mg/2 mL suspension for nebulization 0.5 mg IH BID #60 ml 05/09/18 [Last Taken Unknown] ipratropium 0.5 mg-albuterol 3 mg (2.5 mg base)/3 mL nebulization soln 0.5 - 2.5 mg IH QID #90 ml 05/09/18 [Last Taken Unknown] walker See Dose Instructions .ROUTE .MEDSUPPLY #1 ea 05/09/18 [Last Taken Unknown] blood-glucose meter See Dose Instructions .ROUTE .MEDSUPPLY #1 ea 05/10/18 [Last Taken Unknown] aspirin 81 mg tablet,delayed release 81 mg PO DAILY 08/15/18 [Last Taken Unknown] budesonide-formoterol HFA 80 mcg-4.5 mcg/actuation aerosol inhaler 2 inh IH BID 08/15/18 [Last Taken Unknown] finasteride 5 mg tablet 5 mg PO DAILY 08/15/18 [Last Taken Unknown] omega-3 fatty acids 1,000 mg capsule 2,000 mg PO BID cap 08/15/18 [Last Taken Unknown] Blood Glucose Test See Dose Instructions .ROUTE .MEDSUPPLY #100 ea NS 02/05/19 [Last Taken Unknown] lancets 31 gauge See Dose Instructions .ROUTE .MEDSUPPLY #100 ea 03/29/19 [Last Taken Unknown] ketoconazole 2 % topical cream 1 applic TOPICAL BID #30 g 03/30/19 [Last Taken Unknown] Durable Medical Equipment See Rx Instructions .ROUTE .MEDSUPPLY #1 ea 06/07/19 [Last Taken Unknown] drew.stocking,knee,reg,xlrg See Rx Instructions .ROUTE .MEDSUPPLY #12 ea 06/07/19 [Last Taken Unknown] diphenhydramine 25 mg-acetaminophen 500 mg tablet 1 tab PO HS PRN 06/07/19 [Last Taken Unknown] polyethylene glycol 3350 17 gram oral powder packet 17 g PO DAILY PRN 06/07/19 [Last Taken Unknown] - History of Present History Narrative: Patient was brought in by ambulance. He lives at home alone with visiting nurse. He lives in filthy conditions, EMS found in laying in urine and feces. [facility], given that he has been living in conditions of self neglect. He calls EMS frequently for assistance either because he has fallen or needs assistance with ADL's. He is not able to give any coherent history. He is alert, but confused and at times agitated and calling out. Review of Systems - Narrative Narrative: Unable to obtain, mental status changes. Medical History (Last Reviewed 10/27/19 @ 18:22 by Suzanne Acosta MD) Tobacco abuse (Chronic) Onset Date: Unknown Morbid obesity (Chronic) Onset Date: Unknown Hypertension (Chronic) Onset Date: Unknown Hyperlipidemia (Chronic) Onset Date: Unknown Gout (Chronic) Onset Date: Unknown GERD (gastroesophageal reflux disease) (Chronic) Onset Date: Unknown Type 2 diabetes mellitus (Chronic) Onset Date: Unknown COPD (chronic obstructive pulmonary disease) (Chronic) Onset Date: Unknown Allergic rhinitis (Chronic) Onset Date: Unknown Cataracts, bilateral Onset Date: Unknown Surgical History: Surgical History (Last Reviewed 10/27/19 @ 18:22 by Suzanne Acsota MD) H/O removal of cyst Onset Date: Unknown History of appendectomy Onset Date: Unknown History of incision and drainage Onset Date: Unknown History of surgical removal of pilonidal cyst Onset Date: Unknown Family History: Family History (Last Reviewed 10/27/19 @ 18:22 by Suzanne Acosta MD) Father , age 93 Cancer AAA (abdominal aortic aneurysm) Mother , age 89 CVA (cerebral vascular accident) Social History: (Last Reviewed 10/27/19 @ 18:22 by Suzanne Acosta MD) Social History: adopted: No foster care: No group home: No Marital status: Single lives independently: Yes household members: none caregiver/support person: No current occupational status: retired Highest education level completed: high school graduate Service: Yes [employer] branch: [employer] Tobacco: Smoking Status: Former smoker Smoking End Date: 04/04/14 Alcohol: alcohol intake: former Substance Use: substance use type: does not use Dietary Habits: caffeine: Yes Physical Exam - Physical Exam General Appearance: Present: moderate distress, anxious Head Exam: Present: normal inspection, no evidence of injury Eye Exam: Normal inspection: bilateral, PERRL: bilateral, EOMI: bilateral Ears, Nose, Throat: Present: normal ENT inspection Neck: Present: normal inspection, nontender Respiratory: Present: no respiratory distress, normal breath sounds, no accessory muscle use, chest nontender, lungs clear Cardiovascular/Chest: Present: regular rate, rhythm, systolic murmur Gastrointestinal/Abdominal: Present: nontender, soft - obese, no organomegaly Back Exam: Present: no CVA tenderness, no vertebral tenderness Extremity Exam: Present: extremity edema - chronic dermatitis changes bilateral lower legs with weeping. Neurological Exam: Present: other - Moves all extremities equally. No facial droop. Tongue midline. Skin Exam: Present: warm/dry Progress - Results and Orders Patient's Lab Results:: I have reviewed the patient's lab results. - Vital Signs Patient's Vital Signs:: I have reviewed the patient's vital signs. Vital Signs: Vital Signs 10/27/19 16:54 10/27/19 17:11 Temperature 36.5 C Pulse Rate 103 H 132 H Respiratory Rate 20 Blood Pressure 118/67 118/74 O2 Sat by Pulse Oximetry 90 L 98 - EKG EKG #2 EKG: atrial fibrillation EKG read: Interp. by me EKG Comments: No significant change from 08/30/2019. - Progress/Reassessment Chief Complaint: General Assessment Progress Note-Subjective: 10/27/19 19:[address] scan. No urine specimen yet. [facility] to [facility], as he is going to need placement. [facility] the [facility]. The [facility] operator said he was working on a transfer from another hospital and to call back in about 15 minutes. 10/27/19 19:41 I spoke to the AOD at the [facility] in [place]. He is NOT travel eligible. She is going to fax some papers about [place] financial implications. He is confused, which the visiting nurse earlier today said is his baseline. He is unable to take care of himself at home, he falls frequently, is not capable of handling his meds, and is not capable of taking care of his leg cellulitis. Will request admission locally, he is going to need social work intervention and placement. Departure Clinical Impression: Confusion, Hypertension, Type 2 diabetes mellitus, COPD (chronic obstructive pulmonary disease) Cellulitis Qualifiers: Site of cellulitis: extremity Site of cellulitis of extremity: lower extremity Laterality: unspecified laterality Qualified Code(s): L03.119 - Cellulitis of unspecified part of limb - Departure Disposition: Short Term Hospital Inpatient Condition: Fair Referrals: Tonia Mendoza FNP [Primary Care Provider] -
[2019-10-27 17:58] LABS: Hematocrit 39.3 % (42.0-52.0); Hemoglobin 11.8 gm/dL (13.5-18.0); Mean Cell Volume 101.3 fl (78-100); Mean Corpuscular Hemoglobin 30.4 pg (27-31); Mean Platelet Volume 9.9 fl (8-11.3); Neutrophil # 6.5 K/mm3 (1.3-6.0); Neutrophil % 80.8 % (42-75.0); Platelet Count 154 K/mm3 (150-450); Red Blood Count 3.88 M/mm3 (4.7-6.0); Red Cell Distribution Width 12.4 % (11.5-14.0); White Blood Count 8.1 K/mm3 (4.0-10.5)
[2019-10-27 18:09] LABS: Prothrombin Time (Patient) 10.5 Seconds (9.1-10.7)
[2019-10-27 18:10] LABS: INR 1.06 INR (0.92-1.08)
[2019-10-27 18:11] LABS: Partial Thrombolplastin Time 27.2 Seconds (24-32)
[2019-10-27 18:35] LABS: ALT 14 U/L (19-67); AST 20 U/L (0-48); Albumin * 2.9 gm/dl (3.4-5.0); Alkaline Phosphatase * 87 U/L (50-170); BUN/Creatinine Ratio 34.4 (9.0-21.6); Bilirubin, Total 0.8 mg/dL (0.0-1.1); Blood Urea Nitrogen 31 mg/dL (6-23); CRP 10.1 mg/dL (0.0-0.9); Ca. Corrected For Albumin 9.6 mg/dL (8.4-10.2); Chloride 102 mmol/L (97-106); Glucose * 99 mg/dL (70-110); Potassium 4.8 mmol/L (3.4-4.6); Sodium 144 mmol/L (132-142); Total Protein 6.4 gm/dL (6.2-8.2)
[2019-10-27 18:37] LABS: Troponin I Less than 0.017 ng/mL (0.00-0.10)
[2019-10-27 18:46] LABS: Carbon Dioxide 46.7 mmol/L (24-32.6)
[2019-10-27] MEDS ORDERED: ceFAZolin SODIUM 1 GM VIAL IM ONE (21:16)
--- NOTE | 2019-10-27 21:40 | HP ---
Chief Complaint - Chief Complaint Date of Service: 10/27/19 Time of Service: 08:15 Chief Complaint: cellulitis, recurrent falls History of Present Illness: Patient with PMHx of afib (not anticoagulated for multiple falls), COPD on O2 at baseline, DM, morbid obesity, reflux lives at home alone with home health. He's been having multiple falls. [facility] ER[facility]. He was found today on the floor in feces and urine, and appeared to have been there for perhaps several days. In the ED, his comprehension is not entirely intact, and this is reported to be his baseline. He is not in distress. WBC not elevated at 8.1, lactate not elevated at 1.7. He has some mild electrolyte abnormalities with sodium of 144, potassium of 4.8, creatine kinase not elevated at 40. Blood sugar is 99. He does have bright pink discoloration of bilateral lower legs, and has been diagnosed with cellulitis. Denies CP, SOB, abdominal pain, dysuria. He is oriented to self, location, and month, but many of his answers are not logical. He does have some leg pain. He also reports being unable to lie flat to sleep at night. He is at risk for serious life threatening injury with further falls, and is admitted for treatment of cellulitis and intermediate placement. Medical History (Last Reviewed 10/27/19 @ 18:22 by Suzanne Acosta MD) Tobacco abuse (Chronic) Onset Date: Unknown Morbid obesity (Chronic) Onset Date: Unknown Hypertension (Chronic) Onset Date: Unknown Hyperlipidemia (Chronic) Onset Date: Unknown Gout (Chronic) Onset Date: Unknown GERD (gastroesophageal reflux disease) (Chronic) Onset Date: Unknown Type 2 diabetes mellitus (Chronic) Onset Date: Unknown COPD (chronic obstructive pulmonary disease) (Chronic) Onset Date: Unknown Allergic rhinitis (Chronic) Onset Date: Unknown Cataracts, bilateral Onset Date: Unknown Surgical History: Surgical History (Last Reviewed 10/27/19 @ 18:22 by Suzanne Acosta MD) H/O removal of cyst Onset Date: Unknown History of appendectomy Onset Date: Unknown History of incision and drainage Onset Date: Unknown History of surgical removal of pilonidal cyst Onset Date: Unknown Family History: Family History (Last Reviewed 10/27/19 @ 18:22 by Suzanne Acosta MD) Father , age 93 Cancer AAA (abdominal aortic aneurysm) Mother , age 89 CVA (cerebral vascular accident) Social History: (Last Reviewed 10/27/19 @ 18:22 by Suzanne Acosta MD) Social History: adopted: No foster care: No intermediate: No Marital status: Single lives independently: Yes household members: none caregiver/support person: No current occupational status: retired Highest education level completed: high school graduate Service: Yes branch: [employer] Tobacco: Smoking Status: Former smoker Smoking End Date: 04/04/14 Alcohol: alcohol intake: former Substance Use: substance use type: does not use Dietary Habits: caffeine: Yes Immunizations: IMMUNIZATION HX Immunizations Up to Date Yes History of Influenza Vaccine Yes Hx Pneumococcal Vaccination Yes Allergies/Adverse Reactions: Allergies Allergy/AdvReac Type Severity Reaction Status Date / Time No Known Allergies Allergy Verified 08/30/19 15:46 Home Medications: HOME MEDICATIONS Allopurinol [Zyloprim] 300 mg PO DAILY 12/16/14 [Last Taken Unknown] Metoprolol Tartrate [Lopressor] 50 mg PO BID 12/16/14 [Last Taken Unknown] Omeprazole [Prilosec] 20 mg PO DAILY 12/16/14 [Last Taken Unknown] Terazosin HCl 10 mg PO DAILY 12/16/14 [Last Taken Unknown] Atorvastatin Calcium [Lipitor] 80 mg PO DAILY 11/01/16 [Last Taken Unknown] albuterol sulfate 2.5 mg IH Q8H PRN ml 11/29/17 [Last Taken Unknown] amlodipine 5 mg tablet 5 mg PO DAILY 11/29/17 [Last Taken Unknown] fluticasone propionate 50 mcg/actuation nasal spray,suspension 2 spray BRYANNA DAILY g 11/29/17 [Last Taken Unknown] sildenafil 100 mg tablet 100 mg PO DAILY PRN 11/29/17 [Last Taken Unknown] Calcium Polycarbophil [Fibercon] 625 mg PO BID tab 02/22/18 [Last Taken Unknown] budesonide 0.5 mg/2 mL suspension for nebulization 0.5 mg IH BID #60 ml 05/09/18 [Last Taken Unknown] ipratropium 0.5 mg-albuterol 3 mg (2.5 mg base)/3 mL nebulization soln 0.5 - 2.5 mg IH QID #90 ml 05/09/18 [Last Taken Unknown] walker See Dose Instructions .ROUTE .MEDSUPPLY #1 ea 05/09/18 [Last Taken Unknown] blood-glucose meter See Dose Instructions .ROUTE .MEDSUPPLY #1 ea 05/10/18 [Last Taken Unknown] aspirin 81 mg tablet,delayed release 81 mg PO DAILY 08/15/18 [Last Taken Unknown] budesonide-formoterol HFA 80 mcg-4.5 mcg/actuation aerosol inhaler 2 inh IH BID 08/15/18 [Last Taken Unknown] finasteride 5 mg tablet 5 mg PO DAILY 08/15/18 [Last Taken Unknown] omega-3 fatty acids 1,000 mg capsule 2,000 mg PO BID cap 08/15/18 [Last Taken Unknown] Blood Glucose Test See Dose Instructions .ROUTE .MEDSUPPLY #100 ea NS 02/05/19 [Last Taken Unknown] lancets 31 gauge See Dose Instructions .ROUTE .MEDSUPPLY #100 ea 03/29/19 [Last Taken Unknown] ketoconazole 2 % topical cream 1 applic TOPICAL BID #30 g 03/30/19 [Last Taken Unknown] Durable Medical Equipment See Rx Instructions .ROUTE .MEDSUPPLY #1 ea 06/07/19 [Last Taken Unknown] drew.stocking,knee,reg,xlrg See Rx Instructions .ROUTE .MEDSUPPLY #12 ea 06/07/19 [Last Taken Unknown] diphenhydramine 25 mg-acetaminophen 500 mg tablet 1 tab PO HS PRN 06/07/19 [Last Taken Unknown] polyethylene glycol 3350 17 gram oral powder packet 17 g PO DAILY PRN 06/07/19 [Last Taken Unknown] Exam - Exam Vital Signs: Vital Signs - Last Taken Temp 36.5 C 10/27/19 16:54 Pulse 113 H 10/27/19 19:30 Resp 20 10/27/19 19:30 BP 135/76 10/27/19 19:30 Pulse Ox 97 10/27/19 19:30 Constitutional: Present: Alert, Oriented x3, Cooperative, No distress, Morbidly obese Eye Exam: bilateral eye: other - bilateral eye crusting Respiratory: Present: lungs clear, no respiratory distress, other - on 5L O2 via NC, saturating in the 90's Cardiovascular/Chest: Present: tachycardia, irregularly irregular Abdomen: Present: nontender, obese, firm Skin Exam: Present: other - bright pink discoloration of bilat lower legs with a layer of crusted apparent serous fluid Neurologic: Present: alert, normal mood/affect Appearance: Present: disheveled Eye contact: Present: normal speech Thoughts: Present: other - does not seem to comprehend his illness or health status Diagnostic Studies: Abnormal Lab Results 10/27/19 10/27/19 Range/Units 17:49 17:49 RBC 3.88 L (4.7-6.0) M/mm3 Hgb 11.8 L (13.5-18.0) gm/dL Hct 39.3 L (42.0-52.0) % MCV 101.3 H (78-100) fl MCHC 30.0 L (32-36) g/dl Immature Gran % (Auto) 1.50 H (0.001-0.429) % Immature Gran # (Auto) 0.12 H (0.000-0.0310) K/mm3 Neutrophils % 80.8 H (42-75.0) % Lymphocytes % 8.2 L (20-51) % Neutrophils # 6.5 H (1.3-6.0) K/mm3 Lymphocytes # 0.66 L (1.5-3.5) k/mm3 Sodium 144 H (132-142) mmol/L Plasma Sodium 144 H (130-142) mmol/L Potassium 4.8 H (3.4-4.6) mmol/L Carbon Dioxide 46.7 H (24-32.6) mmol/L Anion Gap Less than 1.0 L (6.8-13.8) mmol/L BUN 31 H D (6-23) mg/dL BUN/Creatinine Ratio 34.4 H (9.0-21.6) ALT 14 L (19-67) U/L C-Reactive Prot, Quant 10.1 H (0.0-0.9) mg/dL Albumin 2.9 L (3.4-5.0) gm/dl Laboratory Results WBC 8.1 K/mm3 (4.0-10.5) 10/27/19 17:49 RBC 3.88 M/mm3 (4.7-6.0) L 10/27/19 17:49 Hgb 11.8 gm/dL (13.5-18.0) L 10/27/19 17:49 Hct 39.3 % (42.0-52.0) L 10/27/19 17:49 MCV 101.3 fl (78-100) H 10/27/19 17:49 MCH 30.4 pg (27-31) 10/27/19 17:49 MCHC 30.0 g/dl (32-36) L 10/27/19 17:49 RDW 12.4 % (11.5-14.0) 10/27/19 17:49 Plt Count 154 K/mm3 (150-450) 10/27/19 17:49 MPV 9.9 fl (8-11.3) 10/27/19 17:49 Immature Gran % (Auto) 1.50 % (0.001-0.429) H 10/27/19 17:49 Immature Gran # (Auto) 0.12 K/mm3 (0.000-0.0310) H 10/27/19 17:49 Neutrophils % 80.8 % (42-75.0) H 10/27/19 17:49 Lymphocytes % 8.2 % (20-51) L 10/27/19 17:49 Monocytes % 8.9 % (0.0-9) 10/27/19 17:49 Eosinophils % 0.2 % (0.0-3.0) 10/27/19 17:49 Basophils % 0.4 % (0.0-1.0) 10/27/19 17:49 Nucleated RBC % 0.0 k/mm3 (0-1) 10/27/19 17:49 Neutrophils # 6.5 K/mm3 (1.3-6.0) H 10/27/19 17:49 Lymphocytes # 0.66 k/mm3 (1.5-3.5) L 10/27/19 17:49 Monocytes # 0.7 k/mm3 (0.0-1.0) 10/27/19 17:49 Eosinophils # 0.0 k/mm3 (0.0-0.7) 10/27/19 17:49 Absolute Basophils 0.0 k/mm3 (0.0-0.1) 10/27/19 17:49 PT 10.5 Seconds (9.1-10.7) 10/27/19 17:49 INR (Anticoag Therapy) 1.06 INR (0.92-1.08) 10/27/19 17:49 PTT (Andrea) 27.2 Seconds (24-32) 10/27/19 17:49 Sodium 144 mmol/L (132-142) H 10/27/19 17:49 Plasma Sodium 144 mmol/L (130-142) H 10/27/19 17:49 Potassium 4.8 mmol/L (3.4-4.6) H 10/27/19 17:49 Chloride 102 mmol/L (97-106) 10/27/19 17:49 Carbon Dioxide 46.7 mmol/L (24-32.6) H 10/27/19 17:49 Anion Gap Less than 1.0 mmol/L (6.8-13.8) L 10/27/19 17:49 BUN 31 mg/dL (6-23) H D 10/27/19 17:49 Creatinine 0.90 mg/dL (0.4-1.4) 10/27/19 17:49 Est GFR (Non-Af Amer) 88 mL/min (60-130) 10/27/19 17:49 BUN/Creatinine Ratio 34.4 (9.0-21.6) H 10/27/19 17:49 Random Glucose 99 mg/dL (70-110) 10/27/19 17:49 Lactic Acid, Venous 1.7 mmol/L (0.4-2.0) 10/27/19 17:49 Calcium 9.0 mg/dL (7.9-10.9) 10/27/19 17:49 Calcium Adj for Albumin 9.6 mg/dL (8.4-10.2) 10/27/19 17:49 Magnesium 2.0 mg/dL (1.2-2.8) 10/27/19 17:49 Total Bilirubin 0.8 mg/dL (0.0-1.1) 10/27/19 17:49 AST 20 U/L (0-48) 10/27/19 17:49 ALT 14 U/L (19-67) L 10/27/19 17:49 Alkaline Phosphatase 87 U/L (50-170) 10/27/19 17:49 Creatine Kinase 40 U/L (0-259) 10/27/19 17:49 Troponin I Less than 0.017 ng/mL (0.00-0.10) 10/27/19 17:49 C-Reactive Prot, Quant 10.1 mg/dL (0.0-0.9) H 10/27/19 17:49 Total Protein 6.4 gm/dL (6.2-8.2) 10/27/19 17:49 Albumin 2.9 gm/dl (3.4-5.0) L 10/27/19 17:49 Assessment/Plan - Assessment/Plan (1) Cellulitis Assessment: Bilateral lower extremity cellulitis. He was ordered a dose of ancef in the ED, but has not yet received it. Will give this tonight, and will continue. His lower legs appear to be crusted with possible dried serous fluid and will need to be cleaned before we can accurately examine his lower legs. He is afebrile, in no distress. WBC not elevated. Problem: Acute Qualifiers: Site of cellulitis: extremity Site of cellulitis of extremity: lower extremity Laterality: unspecified laterality Qualified Code(s): L03.119 - Cellulitis of unspecified part of limb (2) Recurrent falls Assessment: [facility] ER[facility], because he is unable to care for himself at home. He reports being unable to travel to any appointments or get supplies. He does not comprehend some questions, and d oesn't seem to understand his health situation. He is at risk for further falls if he were to return home. Problem: Acute (3) Type 2 diabetes mellitus Assessment: Glucose was 99 on admission. Will do glucose checks with meals. Problem: Chronic Qualifiers: (4) Atrial fibrillation Assessment: HR has been in low 100's. 100 mg metoprolol tartrate listed, and will continue, and verify dose. He is reportedly not anticoagulated due to his frequent falls. Problem: Chronic (5) Hypertension Assessment: BP is slightly high at 135/76. 5 mg amlodipine listed on his med list, but will need to verify this with his pharmacy in the am. Problem: Chronic Qualifiers: (6) Hyperkalemia Assessment: Slight, with K+ level of 4.8. Will give one liter of saline tonight, and recheck in am. Problem: Acute (7) Hyperlipidemia Problem: Chronic Qualifiers: Hyperlipidemia type: mixed hyperlipidemia Qualified Code(s): E78.2 - Mixed hyperlipidemia (8) Gout Problem: Chronic (9) COPD (chronic obstructive pulmonary disease) Assessment: I do not have his baseline O2 requirement currently, but he is not in respiratory distress. Problem: Chronic (10) GERD (gastroesophageal reflux disease) Problem: Chronic (11) Morbid obesity Problem: Chronic
[2019-10-27] MEDS: NORMAL SALINE 1,000 ML IV PRN (21:50)
[2019-10-27] MEDS ORDERED: hydrOXYzine HCL 25 MG TABLET PO PRN (22:00)
[2019-10-27] MEDS ORDERED: ceFAZolin SODIUM 1 GM VIAL IV ONE (22:02)
[2019-10-27] MEDS ORDERED: CEFAZOLIN SODIUM/DEXTROSE,ISO 1 GM/50 ML BAG IV ONE (22:15)
[2019-10-27 23:45] LABS: Urine Bilirubin 1 mg/dl (NEGATIVE); Urine Blood Negative /ul (NEGATIVE); Urine Ketone 5 mg/dL (NEGATIVE); Urine Nitrite Negative (NEGATIVE); Urine Protein 15 mg/dL (NEGATIVE); Urine Specific Gravity >=1.030 SP.GR. (1.005-1.030)
[2019-10-28 00:15] LABS: Urine Appearance Clear (CLEAR); Urine Bacteria TRACE; Urine Color Dark Yellow; Urine Hyaline Cast 0-5 /LPF; Urine RBC None Seen /hpf (0-5); Urine WBC None Seen /hpf (0-5)
[2019-10-28] MEDS ORDERED: ceFAZolin SODIUM 1 GM VIAL IM SCH (05:00)
[2019-10-28] MEDS: NORMAL SALINE 1,000 ML IV PRN ×2 (05:47→12:58)
[2019-10-28 06:41] LABS: Albumin * 2.7 gm/dl (3.4-5.0); Anion Gap 2.8 mmol/L (6.8-13.8); BUN/Creatinine Ratio 36.4 (9.0-21.6); Bilirubin, Total 0.7 mg/dL (0.0-1.1); Ca. Corrected For Albumin 9.1 mg/dL (8.4-10.2); Calcium * 8.4 mg/dL (7.9-10.9); Carbon Dioxide 42.7 mmol/L (24-32.6); Potassium 4.5 mmol/L (3.4-4.6); Total Protein 5.8 gm/dL (6.2-8.2)
[2019-10-28] MEDS ORDERED: ceFAZolin SODIUM 1 GM VIAL IV SCH (08:00)
[2019-10-28] MEDS ORDERED: amLODIPine BESYLATE 5 MG TABLET PO SCH (09:00)
[2019-10-28] MEDS ORDERED: METOPROLOL TARTRATE 50 MG TABLET PO SCH (09:00)
[2019-10-28 10:44] VITALS: BP 112/68
[2019-10-28] MEDS ORDERED: ceFAZolin SODIUM 1 GM in DEXTROSE 5 % IN WATER 100 ML IV SCH ×2 (11:00)
--- NOTE | 2019-10-28 13:27 | DS ---
Transfer Discharge Summary - Diagnosis(s)/Problems (1) Cellulitis Problem: Acute (2) Recurrent falls Problem: Acute (3) Type 2 diabetes mellitus Problem: Chronic (4) Atrial fibrillation Problem: Chronic (5) Hypertension Problem: Chronic (6) Hyperkalemia Problem: Acute (7) Hyperlipidemia Problem: Chronic (8) Gout Problem: Chronic (9) COPD (chronic obstructive pulmonary disease) Problem: Chronic (10) GERD (gastroesophageal reflux disease) Problem: Chronic (11) Morbid obesity Problem: Chronic - Course Description of Stay: Patient with PMHx of afib (not anticoagulated for multiple falls), COPD on O2 at baseline, DM, morbid obesity, dementia, reflux lives at home alone with home health. He's been having multiple falls. Per ERP, someone from the [facility] was trying to get him into a facility. He was found on the floor in feces and urine, and appeared to have been there for perhaps several days. In the ED, his comprehension is not entirely intact, and this is reported to be his baseline. He is not in distress. WBC not elevated at 8.1, lactate not elevated at 1.7. He has some mild electrolyte abnormalities with sodium of 144, potassium of 4.8, creatine kinase not elevated at 40. Blood sugar is 99. He has some intermittent mild tachycardia and tachypnea. Blood pressure has been 110's/60's. He does have bright pink discoloration of bilateral lower legs, and has been diagnosed with cellulitis. Denies CP, SOB, abdominal pain, dysuria. On admission, he was oriented to self, location, and month, but many of his answers are not logical. The day of transfer, he thought he was a missing person and asked for the police to be ca lled. He does have some leg pain. He also reports being unable to lie flat to sleep at night. He is at risk for serious life threatening injury with further falls, and is admitted for treatment of cellulitis and senior living placement. He was given cefazolin q8h for his cellulitis. The legs were cleaned and aquacel placed over the ulcers, with overlying gauze. The day after admission, he was accepted to the [facility], fur further help in trying to get him placed in a facility. He is at risk for life threatening injury or illness if he were to return home. He is unable to administer meds or care for his wounds. Procedures Performed: none - Results and Findings Results and Findings: Laboratory Results - last 24 hr 10/27/19 10/27/19 10/27/19 17:49 17:49 17:49 WBC 8.1 RBC 3.88 L Hgb 11.8 L Hct 39.3 L MCV 101.3 H MCH 30.4 MCHC 30.0 L RDW 12.4 Plt Count 154 MPV 9.9 Immature Gran % (Auto) 1.50 H Immature Gran # (Auto) 0.12 H Neutrophils % 80.8 H Lymphocytes % 8.2 L Monocytes % 8.9 Eosinophils % 0.2 Basophils % 0.4 Nucleated RBC % 0.0 Neutrophils # 6.5 H Lymphocytes # 0.66 L Monocytes # 0.7 Eosinophils # 0.0 Absolute Basophils 0.0 PT 10.5 INR (Anticoag Therapy) 1.06 PTT ([place]) 27.2 Sodium 144 H Plasma Sodium 144 H Potassium 4.8 H Chloride 102 Carbon Dioxide 46.7 H Anion Gap Less than 1.0 L BUN 31 H D Creatinine 0.90 Est GFR (Non-Af Amer) 88 BUN/Creatinine Ratio 34.4 H Random Glucose 99 Lactic Acid, Venous Calcium 9.0 Calcium Adj for Albumin 9.6 Magnesium 2.0 Total Bilirubin 0.8 AST 20 ALT 14 L Alkaline Phosphatase 87 Creatine Kinase Troponin I Less than 0.017 C-Reactive Prot, Quant 10.1 H Total Protein 6.4 Albumin 2.9 L Urine Color Urine Appearance Urine pH Ur Specific [place] Urine Protein Urine Glucose (UA) Urine Ketones Urine Blood Urine Nitrate Urine Bilirubin Urine Ictotest Prot Sulfosalicylic Acd Urine Urobilinogen Ur Leukocyte Esterase Urine RBC Urine WBC Ur Epithelial Cells Urine Bacteria Hyaline Casts Urine Culture Comments 10/27/19 10/27/19 10/27/19 17:49 17:49 23:30 WBC RBC Hgb Hct MCV MCH MCHC RDW Plt Count MPV Immature Gran % (Auto) Immature Gran # (Auto) Neutrophils % Lymphocytes % Monocytes % Eosinophils % Basophils % Nucleated RBC % Neutrophils # Lymphocytes # Monocytes # Eosinophils # Absolute Basophils PT INR (Anticoag Therapy) PTT ([place]) Sodium Plasma Sodium Potassium Chloride Carbon Dioxide Anion Gap BUN Creatinine Est GFR (Non-Af Amer) BUN/Creatinine Ratio Random Glucose Lactic Acid, Venous 1.7 Calcium Calcium Adj for Albumin Magnesium Total Bilirubin AST ALT Alkaline Phosphatase Creatine Kinase 40 Troponin I C-Reactive Prot, Quant Total Protein Albumin Urine Color Dark yellow Urine Appearance Clear Urine pH 6.0 Ur Specific [place] >=1.030 Urine Protein 15 H Urine Glucose (UA) Negative Urine Ketones 5 Urine Blood Negative Urine Nitrate Negative Urine Bilirubin 1 H Urine Ictotest Negative Prot Sulfosalicylic Acd Negative Urine Urobilinogen 2.0 H Ur Leukocyte Esterase Negative Urine RBC None seen Urine WBC None seen Ur Epithelial Cells None seen Urine Bacteria Trace Hyaline Casts 0-5 H Urine Culture Comments No culture indicated 10/28/19 06:10 WBC RBC Hgb Hct MCV MCH MCHC RDW Plt Count MPV Immature Gran % (Auto) Immature Gran # (Auto) Neutrophils % Lymphocytes % Monocytes % Eosinophils % Basophils % Nucleated RBC % Neutrophils # Lymphocytes # Monocytes # Eosinophils # Absolute Basophils PT INR (Anticoag Therapy) PTT (Andrea) Sodium 144 H Plasma Sodium 144 H Potassium 4.5 Chloride 103 Carbon Dioxide 42.7 H Anion Gap 2.8 L BUN 28 H Creatinine 0.77 Est GFR (Non-Af Amer) 105 BUN/Creatinine Ratio 36.4 H Random Glucose 104 Lactic Acid, Venous Calcium 8.4 Calcium Adj for Albumin 9.1 Magnesium Total Bilirubin 0.7 AST 19 ALT 15 L Alkaline Phosphatase 81 Creatine Kinase Troponin I C-Reactive Prot, Quant Total Protein 5.8 L Albumin 2.7 L Urine Color Urine Appearance Urine pH Ur Specific [place] Urine Protein Urine Glucose (UA) Urine Ketones Urine Blood Urine Nitrate Urine Bilirubin Urine Ictotest Prot Sulfosalicylic Acd Urine Urobilinogen Ur Leukocyte Esterase Urine RBC Urine WBC Ur Epithelial Cells Urine Bacteria Hyaline Casts Urine Culture Comments - Medications Medications: Active Medications Amlodipine Besylate (Norvasc) 5 mg PO DAILY [facility] Stop: 11/27/19 09:01 Last Admin: 10/28/19 08:13 Dose: 5 mg Documented by: Sodium Chloride (Sodium Chloride 0.9%) 1,000 mls @ 150 mls/hr IV .[id number] PRN PRN Reason: HYDRATION Last Admin: 10/28/19 12:58 Dose: 150 mls/hr Documented by: Cefazolin Sodium 1 gm/ (Dextrose/Water) 100 mls @ 200 mls/hr IV Q8H [facility] Stop: 11/27/19 11:01 Last Admin: 10/28/19 11:18 Dose: 200 mls/hr Documented by: Metoprolol Tartrate (Lopressor) 50 mg PO BID [facility] Stop: 11/27/19 09:01 Last Admin: 10/28/19 08:13 Dose: 50 mg Documented by: Discontinued Medications Cefazolin Sodium (Ancef) 1 gm IM ONCE ONE; Protocol Stop: 10/27/19 21:17 Last Admin: 10/27/19 22:26 Dose: Not Given Documented by: Hydroxyzine HCl (Atarax) 25 mg PO ONCE PRN PRN Reason: Sleep Stop: 11/26/19 22:01 Last Admin: 10/28/19 01:54 Dose: 25 mg Documented by: Cefazolin Sodium/Dextrose (Ancef) 1 gm in 50 mls @ 100 mls/hr IV ONCE ONE Stop: 10/27/19 22:44 Last Infusion: 10/27/19 22:49 Dose: Infused Documented by: - Disposition Disposition: [facility] Facility Condition: Fair Discharge Date: 10/28/19
[2019-10-28] MEDS ORDERED: ENOXAPARIN SODIUM 40 MG/0.4 ML SYRG SC SCH (21:00)
[2019-10-30] MEDS ORDERED: ceFAZolin SODIUM 1 GM VIAL IM SCH
== END 2019-10-28 14:00 | DRG 603 ==
LOC: ER 16:47 → MS 21:07
PROVIDERS: ADMIT Family Medicine; ATTEND Family Medicine
DX: K21.9 Gastro-esophageal reflux disease without esophagitis; L03.115 Cellulitis of right lower limb; I10 Essential (primary) hypertension; I48.91 Unspecified atrial fibrillation; M1A.9XX0 Chronic gout, unspecified, without tophus (tophi); E66.01 Morbid (severe) obesity due to excess calories; R41.0 Disorientation, unspecified; E11.9 Type 2 diabetes mellitus without complications; Z91.81 History of falling; Z68.42 Body mass index [BMI] 45.0-49.9, adult; E87.5 Hyperkalemia; F03.90 Unspecified dementia, unspecified severity, without behavioral disturbance, psychotic disturbance, mood disturbance, and anxiety; J44.9 Chronic obstructive pulmonary disease, unspecified; Z87.891 Personal history of nicotine dependence; E78.2 Mixed hyperlipidemia; L03.116 Cellulitis of left lower limb
CPT/HCPCS: 36415; 71010; 71045; 80053; 81001; 82550; 83605; 83735; 84484; 85025; 85610; 85730; 86140; 87040; 93005; 99284